=== PATIENT | male | born 1955 | race Caucasian/White ===

== ENCOUNTER → 2020-12-26 | Outpatient (CLI) | payer BC, MEDICARE | LOC: EXRD 08:19 | DX: R06.02 Shortness of breath (principal) | CPT/HCPCS: 71046 ==

== ENCOUNTER 2021-02-23 17:23 | Emergency (ER) | payer BC, MEDICARE ==
[~2021-02-23] VITALS: Ht 182.9 cm; Wt 88.9 kg
== END 2021-02-23 20:35 | disposition home or self-care (01) ==
LOC: ER1 17:23
DX: Z23 Encounter for immunization (principal); U07.1 COVID-19; I10 Essential (primary) hypertension; Z88.0 Allergy status to penicillin; Z90.89 Acquired absence of other organs
CPT/HCPCS: 99283; M0243

== ENCOUNTER → 2021-10-25 | Outpatient (CLI) | payer BC, MEDICARE | LOC: EXRD 09:21 | DX: M25.561 Pain in right knee (principal); M25.562 Pain in left knee; M54.12 Radiculopathy, cervical region; M25.511 Pain in right shoulder; M25.512 Pain in left shoulder; U09.9 Post COVID-19 condition, unspecified; R06.02 Shortness of breath; M54.50 Low back pain, unspecified; M17.0 Bilateral primary osteoarthritis of knee; M77.8 Other enthesopathies, not elsewhere classified; M19.012 Primary osteoarthritis, left shoulder; M19.011 Primary osteoarthritis, right shoulder | CPT/HCPCS: 71046; 72040; 72100; 73030; 73564 ==

== ENCOUNTER 2022-01-05 11:18 | Emergency (ER) | payer BC, MEDICARE ==
[~2022-01-05] VITALS: Ht 185.4 cm; Wt 99.8 kg
[2022-01-05 12:33] LABS: HEMOGLOBIN 9.2 gm/dl (14.0-17.5); RED BLOOD COUNT 3.26 M/UL (4.20-5.50); WHITE BLOOD COUNT 14.4 K/UL (4.5-11.0)
[2022-01-06 04:57] LABS: HEMOGLOBIN 9.5 gm/dl (14.0-17.5); RED BLOOD COUNT 3.37 M/UL (4.20-5.50); WHITE BLOOD COUNT 13.8 K/UL (4.5-11.0)
[2022-01-06 05:06] LABS: BUN/CREATININE RATIO 25 (0-10)
[2022-01-06] MEDS ORDERED: D3-200050 MCG PO (10:31)
[2022-01-06] MEDS ORDERED: CUBICIN 500 MG500 MG INJ (10:31)
[2022-01-06] MEDS ORDERED: ELIQUIS5 MG PO (10:31)
[2022-01-06] MEDS ORDERED: INVANZ 1 GM VIAL1 GM IM (10:32)
[2022-01-06] MEDS ORDERED: FINASTERIDE5 MG PO (10:32)
[2022-01-06] MEDS ORDERED: DIFLUCAN100 MG PO (10:33)
[2022-01-06] MEDS ORDERED: GABAPENTIN600 MG PO (10:33)
[2022-01-06] MEDS ORDERED: FLONASE ALLER15.8 ML (10:33)
[2022-01-06] MEDS ORDERED: METHOCARBAMOL500 MG PO (10:33)
[2022-01-06] MEDS ORDERED: HYDRALAZINE HCL25 MG PO (10:33)
[2022-01-06] MEDS ORDERED: PROTONIX 40 MG40 M1 PO (10:34)
[2022-01-06] MEDS ORDERED: LOPRESSOR50 MG PO (10:34)
[2022-01-06] MEDS ORDERED: OXYMORPHONE HCL5 M1 PO (10:34)
[2022-01-06] MEDS ORDERED: OXYCODONE HCL10 MG PO (10:34)
[2022-01-06] MEDS ORDERED: SEROQUEL50 MG PO (10:35)
[2022-01-06] MEDS ORDERED: ISOSORBIDE DINI20 MG PO (10:35)
[2022-01-06] MEDS ORDERED: AMLODIPINE BESYL5 MG PO (10:35)
[2022-01-06] MEDS ORDERED: FLOMAX 0.4 MG0.4 MG PO (10:35)
[2022-01-06] MEDS ORDERED: DOCUSATE PO (10:37)
[2022-01-06 17:55] LABS: AMYLASE, BODY FLUID 16 U/L; BODY FLUID SOURCE PERICARDIAL; LDH, BODY FLUID 388 U/L; TOTAL PROTEIN, BODY FLUID 3.4 gm/dL
[2022-01-06 17:56] LABS: MONONUCLEAR CELLS 37 (75-100); POLYMORPHONUCLEAR % 63 (0-25)
[2022-01-07 05:26] LABS: HEMOGLOBIN 10.2 gm/dl (14.0-17.5); RED BLOOD COUNT 3.65 M/UL (4.20-5.50); WHITE BLOOD COUNT 10.5 K/UL (4.5-11.0)
[2022-01-07 05:52] LABS: BUN/CREATININE RATIO 16 (0-10)
== END 2022-01-07 14:44 | disposition short-term general hospital (02) ==
LOC: ER1 11:18 → CDU 01-07 10:55 → ER1 01-07 14:44
PROVIDERS: Emergency Medicine; Internal Medicine
DX: A41.9 Sepsis, unspecified organism (principal); J18.9 Pneumonia, unspecified organism; G93.41 Metabolic encephalopathy; J90 Pleural effusion, not elsewhere classified; I10 Essential (primary) hypertension; Z79.01 Long term (current) use of anticoagulants; N17.9 Acute kidney failure, unspecified; D64.9 Anemia, unspecified; N40.0 Benign prostatic hyperplasia without lower urinary tract symptoms; D75.839 Thrombocytosis, unspecified; D72.829 Elevated white blood cell count, unspecified; Z93.1 Gastrostomy status; Z90.89 Acquired absence of other organs; Z90.49 Acquired absence of other specified parts of digestive tract; Z79.899 Other long term (current) drug therapy; Z88.0 Allergy status to penicillin; Z20.822 Contact with and (suspected) exposure to COVID-19
CPT/HCPCS: ECHO; 0240U; 36600; 70450; 71045; 80053; 80202; 81001; 82150; 82550; 82553; 82803; 82945; 83605; 83615; 83735; 83986; 84100; 84157; 84484; 85025; 85027; 87040; 87070; 87081; 87086; 87205; 89051; 93005; 93306; 96365; 96366; 96368; 96375; 96376; 99285; C9113; G0378; J0692; J2248; J2270; J3370; J7070; Q9967